=== PATIENT | male | born 1990 | race Hispanic/Latino ===

== ENCOUNTER 2022-04-05 07:14 | Emergency (ER) | payer SELFPAY ==
[2022-04-05 07:34] LABS: Urine Blood Negative (Negative); Urine Glucose Negative (Negative); Urine Protein Negative (Negative); Urine Specific Gravity 1.025 (1.005-1.030)
[2022-04-05 07:41] LABS: Urine Bacteria None Seen /HPF (<20); Urine Mucus Slight /HPF (None Seen); Urine RBC <5 /HPF (None Seen)
[2022-04-05 07:46] LABS: Absolute Lymphocytes (CBC) 2.4 K/uL (0.7-4.9); Lymphocytes % 28.1 % (15.3-44.8); MCV 99.9 fL (80-100); MPV 7.2 fL (7.6-11.3)
--- NOTE | 2022-04-05 07:59 | RAD REPORT ---
EXAM DESCRIPTION: RAD - Ribs Right - 04/05/2022 7:46 am CLINICAL HISTORY: PAIN COMPARISON: CHEST SINGLE VIEW dated 11/20/2010 FINDINGS/IMPRESSION: No displaced right-sided rib fractures are appreciated. Note that nondisplaced or minimally displaced rib fractures may not be apparent on radiography until healing begins. No pneumothorax. The lungs are clear bilaterally. Heart size is normal. Visualized upper abdomen is u nremarkable.
[2022-04-05 08:00] LABS: Albumin 3.5 g/dL (3.4-5.0); Bilirubin Total 0.4 mg/dL (0.2-1.0); Potassium 4.3 mmol/L (3.5-5.1); Protein, Total 6.8 g/dL (6.4-8.2)
[2022-04-05] MEDS ORDERED: HYDROCODONE/APAP 5/325 MG TAB ONE (08:22)
--- NOTE | 2022-04-05 08:34 | RAD REPORT ---
[facility] 8:10 am CLINICAL HISTORY: right flank pain, hematuria COMPARISON: None TECHNIQUE: CT of the abdomen and pelvis was performed without contrast. All CT scans are performed using dose optimization technique as appropriate and may include automated exposure control or mA/KV adjustment according to patient size. FINDINGS: Lower chest: No acute abnormality. Liver: No acute abnormality or suspicious lesions. Biliary: No biliary ductal dilatation. Stomach: No significant focal abnormality. Duodenum: No significant focal abnormality. Pancreas: No significant abnormality. Spleen: No significant abnormality. Adrenal: No suspicious lesions. Kidney/ureter: No hydronephrosis. No renal calculi. Retroperitoneum: No retroperitoneal adenopathy. Vascular: No aneurysm. Bowel: No significant focal abnormality. Normal appendix. Peritoneum: No ascites or free air. Bladder: Decompressed, but grossly unremarkable. Reproductive: No masses. Bones: No acute fracture. Other: n/a IMPRESSION: No acute intra-abdominal or pelvic finding. No urinary tract calculi.
--- NOTE | 2022-04-05 08:49 | ER ---
Nurse's Notes [facility] Name: Ruben Ceja III Age: 31 yrs Sex: Male : 1990 Arrival Date: 04/05/2022 Time: 07:16 Bed DIS2 Private MD: Diagnosis: Chest pain, unspecified-right lower lateral chest wall Presentation: 04/05 07:21 Chief complaint: Patient states: R lateral chest wall pain that began 2-3 weeks ago. 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 Coronavirus screen: Client denies travel out of the [place] in the last 14 days. Ebola Screen: Patient denies exposure to infectious person. Patient denies travel to an Ebola-affected area in the 21 days before illness onset. Initial Sepsis Screen: Does the patient meet any 2 criteria? No. Patient's initial sepsis screen is negative. Does the patient have a suspected source of infection? No. Patient's initial sepsis screen is negative. Risk Assessment: Do you want to hurt yourself or someone else? Patient reports no desire to harm self or others. Onset of symptoms was April 04, 2022. 07:21 Method Of Arrival: Ambulatory 07:21 Acuity: REYNA 4 ss Historical: - Allergies: 07:24 No Known Allergies; ss - Home Meds: 07:24 None [Active]; ss - PMHx: 07:24 None; ss - PSHx: 07:24 None; ss - Immunization history:: Client reports having NOT received the Covid vaccine. - Social history:: Smoking status: Patient denies any tobacco usage or history of. Patient uses alcohol, on a daily basis. Vital Signs: 07:21 BP 116 / 78; Pulse 66; Resp 16; Temp 97.8(O); Pulse Ox 98% on R/A; Height 5 ft. 9 in. ss (175.26 cm); Pain 3/10; 07:21 Pt denies pain when staying still. At worse, pain is a seven when moving ED Course: 07:16 Patient arrived in ED. am2 07:16 Fady Lambert PA is PHCP. cp 07:16 Neisha Toth MD is Attending Physician. cp 07:24 Triage completed. ss 07:24 Arm band placed on right wrist. ss 07:38 Initial lab(s) drawn, by al, sent to lab. Inserted saline lock:. Inserted saline lock: kj1 20 gauge in right antecubital area, using aseptic technique. Blood collected. 07:39 Urine collected: clean catch specimen, otto colored. kj1 07:47 XRAY Ribs RIGHT In Process Unspecified. EDMS 08:10 CT Stone Protocol In Process Unspecified. EDMS 09:04 No provider procedures requiring assistance completed. Patient did not have IV access ss during this emergency room visit. Administered Medications: 08:20 Drug: HYDROcodone-acetaminophen 5 mg-325 mg 1 tabs Route: PO; ss Outcome: 08:48 Discharge ordered by . cp 09:04 Discharged to home ambulatory. ss 09:04 Condition: good 09:04 Discharge instructions given to patient, Instructed on discharge instructions, follow up and referral plans. medication usage, Demonstrated understanding of instructions, follow-up care, medications, Prescriptions given X 1. 09:05 Patient left the ED. ss Signatures: Dispatcher [employer] Mercedez Zeng RN RN ss Fady Lambert PA PA cp Moreno, Amanda amJelly Hensley kj1
--- NOTE | 2022-04-05 08:49 | EDPHYS ---
Physician Documentation [facility] Name: Ruben Ceja III Age: 31 yrs Sex: Male : 1990 Arrival Date: 04/05/2022 Time: 07:16 Bed DIS2 Private MD: ED Physician Neisha Toth HPI: 04/05 07:30 This 31 yrs old Male presents to ER via Ambulatory with complaints of right cp rib pain/flank pain. 07:30 The patient or guardian reports chest pain that is located primarily in the right lower cp lateral chest and right flank. 07:30 Onset: The symptoms/episode began/occurred 2-3 weeks ago. Modifying factors: the cp symptoms are aggravated by movement, palpation/percussion. 07:30 Associated signs and symptoms: Pertinent positives: hematuria. cp 07:32 Patient reports pain to right lateral lower chest and right flank for past 2-3 weeks. 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 Historical: - Allergies: 07:24 No Known Allergies; ss - Home Meds: 07:24 None [Active]; ss - PMHx: 07:24 None; ss - PSHx: 07:24 None; ss - Immunization history:: Client reports having NOT received the Covid vaccine. - Social history:: Smoking status: Patient denies any tobacco usage or history of. Patient uses alcohol, on a daily basis. ROS: 07:35 Constitutional: Negative for body aches, chills, fever, poor PO intake. cp 07:35 Cardiovascular: Positive for chest pain, of the right lower lateral chest, Negative for cp edema, palpitations. 07:35 Back: Positive for flank pain, on the right. 07:35 : Positive for hematuria. Exam: 07:40 Constitutional: The patient appears in no acute distress, alert, awake, cp non-diaphoretic, non-toxic, well developed, well nourished. 07:40 Head/Face: Normocephalic, atraumatic. cp 07:40 Eyes: Periorbital structures: appear normal, Conjunctiva: normal, no exudate, no injection, Sclera: no appreciated abnormality, Lids and lashes: appear normal, bilaterally. 07:40 ENT: External ear(s): are unremarkable, Nose: is normal, Mouth: Lips: moist, Oral mucosa: pink and intact, moist, Posterior pharynx: Airway: no evidence of obstruction, patent. 07:40 Neck: ROM/movement: is normal, is supple, without pain, no range of motions limitations. 07:40 Chest/axilla: Inspection: normal, Palpation: crepitus, is not appreciated, tenderness, that is moderate, of the right lower lateral chest wall. 07:40 Cardiovascular: Rate: normal, Rhythm: regular, Edema: is not appreciated, JVD: is not appreciated. 07:40 Respiratory: the patient does not display signs of respiratory distress, Respirations: normal, no use of accessory muscles, no retractions, labored breathing, is not present, Breath sounds: are clear throughout, no decreased breath sounds, no stridor, no wheezing. 07:40 Abdomen/GI: Inspection: abdomen appears normal, Bowel sounds: active, all quadrants, Palpation: soft, in all quadrants, moderate abdominal tenderness, in the anterior aspect of right lateral abdomen and posterior aspect of right lateral abdomen, rebound tenderness, is not appreciated, involuntary guarding, is not appreciated. 07:40 Back: no vertebral tenderness palpated. 07:40 Skin: cellulitis, is not appreciated, no rash present. 07:40 Neuro: Orientation: to person, place \\T\\ time. Mentation: is normal, Motor: moves all fours, strength is normal, Sensation: is normal, Gait: is steady, at a normal pace, without difficulty. Vital Signs: 07:21 BP 116 / 78; Pulse 66; Resp 16; Temp 97.8(O); Pulse Ox 98% on R/A; Height 5 ft. 9 in. ss (175.26 cm); Pain 3/10; 07:21 Pt denies pain when staying still. At worse, pain is a seven when moving ss MDM: 07:33 Patient medically screened. cp 08:48 Patient medically screened. cp 08:48 Data reviewed: vital signs, nurses notes, lab test result(s), radiologic studies, CT cp scan, plain films. 08:48 Differential diagnosis: chest wall pain, cholecystitis, Cholelithiasis nephrolithiasis, cp pyelonephritis, UTI, pancreatitis, rib fracture, rib contusion pneumonia, pneumothorax, pulmonary embolus. Test interpretation: by ED physician or midlevel provider: plain radiologic studies. Counseling: I had a detailed discussion with the patient and/or guardian regarding: the historical points, exam findings, and any diagnostic results supporting the discharge/admit diagnosis, lab results, radiology results, the need for outpatient follow up, a family practitioner, to return to the emergency department if symptoms worsen or persist or if there are any questions or concerns that arise at home. 04/05 07:26 Order name: CBC with Diff; Complete Time: 07:54 cp 04/05 07:54 Interpretation: Normal except: MPV 7.2. cp 04/05 07:26 Order name: CMP; Complete Time: 08:01 cp 04/05 08:03 Interpretation: Normal except: CL 108; GLUC 107; BUN 20. cp 04/05 07:26 Order name: Lipase; Complete Time: 08:01 04/05 07:26 Order name: Urine Microscopic Only; Complete Time: 07:54 cp 04/05 07:26 Order name: D-Dimer; Complete Time: 07:54 04/05 07:35 Order name: Urine Dipstick-Ancillary; Complete Time: 07:54 EDMS 04/05 07:26 Order name: IV Saline Lock; Complete Time: 07:38 cp 04/05 07:26 Order name: Labs collected and sent; Complete Time: 07:38 cp 04/05 07:26 Order name: Urine Dipstick-Ancillary (obtain specimen); Complete Time: 07:39 cp 04/05 07:26 Order name: XRAY Ribs RIGHT; Complete Time: 08:01 04/05 07:55 Order name: CT Stone Protocol; Complete Time: 08:44 04/05 08:45 Interpretation: Report reviewed. cp Administered Medications: 08:20 Drug: HYDROcodone-acetaminophen 5 mg-325 mg 1 tabs Route: PO; ss Disposition Summary: 04/05/22 08:48 Discharge Ordered Location: Home cp Problem: new cp Symptoms: have improved cp Condition: Stable cp Diagnosis - Chest pain, unspecified - right lower lateral chest wall cp Followup: cp - With: Private Physician - When: 2 - 3 days - Reason: Recheck today's complaints Discharge Instructions: - Discharge Summary Sheet cp - Chest Wall Pain cp - Form - Return To Work kj1 Forms: - Medication Reconciliation Form cp - Thank You Letter cp - Antibiotic Education cp - Prescription Opioid Use cp - Work release form kj1 Prescriptions: - Diclofenac Sodium 75 mg Oral tablet,delayed release (DR/EC) - take 1 tablet by ORAL route 2 times per day; 20 tablet; Refills: 0, Product cp Selection Permitted Addendum: 04/09/2022 12:37 STAFF ATTESTATION STATEMENT: I was immediately available onsite in the emergency s d2 department for consultation in the care of this patient. I did not see or examine this patient. Neisha Toth MD. Signatures: Dispatcher [employer] EDGA Mercedez De Leon, JASPREET RN ss Fady Lambert, TATY PA Neisha Lopez MD MD sd2
[2022-04-05 09:27] VITALS: BP 116/78; TEMP 97.8; O2SAT 98
== END 2022-04-05 09:05 | disposition home or self-care (01) ==
LOC: ER 07:14
DX: R07.89 Other chest pain (principal)
CPT/HCPCS: 36415; 74176; 76377; 80053; 81003; 81015; 83690; 85025; 85379; 99284

== ENCOUNTER 2023-11-15 13:24 | Emergency (ER) | payer OTHER ==
--- NOTE | 2023-11-15 13:51 | ER ---
Nurse's Notes [facility] Name: Ruben Ceja III Age: 33 yrs Sex: Male : 1990 Arrival Date: 11/15/2023 Time: 13:24 Bed DX1 Private MD: Diagnosis: COVID-19 Presentation: 11/14 13:46 Chief complaint: Seen in ED 11/06 for COVID, employer requires return to work note. hb Coronavirus screen: At this time, the client does not indicate any symptoms associated with coronavirus-19. Ebola Screen: No symptoms or risks identified at this time. Initial Sepsis Screen: Does the patient meet any 2 criteria? No. Patient's initial sepsis screen is negative. Does the patient have a suspected source of infection? No. Patient's initial sepsis screen is negative. Risk Assessment: Do you want to hurt yourself or someone else? Patient reports no desire to harm self or others. Onset of symptoms was November 15, 2023. 13:46 Method Of Arrival: Ambulatory hb 13:46 Acuity: REYNA 5 hb - Family history:: not pertinent. Vital Signs: 13:46 BP 132 / 79; Pulse 56; Resp 16; Temp 97.3(TE); Pulse Ox 96% on R/A; Weight 81.65 kg; hb Height 5 ft. 9 in. ; Pain 0/10; 13:46 Body Mass Index 26.58 (81.65 kg, 175.26 cm) hb 13:46 Pain Scale: Adult hb ED Course: 13:26 Patient arrived in ED. im 13:27 Nasim Pagan MD is Attending Physician. rt 13:48 Triage completed. hb 14:18 Natividad Mariee RN is Primary Nurse. Administered Medications: No medications were administered Outcome: 13:50 Discharge ordered by . rt 14:18 Patient left the ED. hb Signatures: Natividad Mariee RN RN Nasim Pagan MD MD rt Ellen Medina im
--- NOTE | 2023-11-15 13:51 | EDPHYS ---
Physician Documentation [facility] Name: Ruben Ceja III Age: 33 yrs Sex: Male : 1990 Arrival Date: 11/15/2023 Time: 13:24 Bed DX1 Private MD: ED Physician Nasim Pagan HPI: 11/14 14:02 This 33 yrs old Male presents to ER via Ambulatory with complaints of Work rt note. 14:02 Patient was seen in the ED over a week ago, diagnosed with COVID. Patient states that rt his symptoms have mostly resolved except for mild lingering cough. States that he feels much better. Is here for a work note stating that he needs to go back to work. Denies other acute complaints, symptoms are mild in severity, no other aggravating or elevating factors.. - Family history:: not pertinent. ROS: 14:02 Constitutional: Negative for fever, chills, and weight loss, Cardiovascular: Negative rt for chest pain, palpitations, and edema, Abdomen/GI: Negative for abdominal pain, nausea, vomiting, diarrhea, and constipation, Skin: Negative for injury, rash, and discoloration, Neuro: Negative for headache, weakness, numbness, tingling, and seizure, 14:02 Cardiovascular: Positive for 14:02 Respiratory: Positive for cough, Negative for shortness of breath, Exam: 14:02 Constitutional: This is a well developed, well nourished patient who is awake, alert, rt and in no acute distress. Head/Face: Normocephalic, atraumatic. Chest/axilla: Normal chest wall appearance and motion. Nontender with no deformity. No lesions are appreciated. Cardiovascular: Regular rate and rhythm with a normal S1 and S2. No gallops, murmurs, or rubs. Normal PMI, no JVD. No pulse deficits. Respiratory: Lungs have equal breath sounds bilaterally, clear to auscultation and percussion. No rales, rhonchi or wheezes noted. No increased work of breathing, no retractions or nasal flaring. Abdomen/GI: Soft, non-tender, with normal bowel sounds. No distension or tympany. No guarding or rebound. No evidence of tenderness throughout. Skin: Warm, dry with normal turgor. Normal color with no rashes, no lesions, and no evidence of cellulitis. MS/ Extremity: Pulses equal, no cyanosis. Neurovascular intact. Full, normal range of motion. Vital Signs: 13:46 BP 132 / 79; Pulse 56; Resp 16; Temp 97.3(TE); Pulse Ox 96% on R/A; Weight 81.65 kg; hb Height 5 ft. 9 in. ; Pain 0/10; 13:46 Body Mass Index 26.58 (81.65 kg, 175.26 cm) hb 13:46 Pain Scale: Adult hb MDM: 13:49 Patient medically screened. rt 14:02 Differential Diagnosis COVID. Data reviewed: vital signs, nurses notes. Test considered rt but Not performed: Other Details Significantly proving symptoms, stable vital signs, labs, x-ray not indicated. Counseling: I had a detailed discussion with the patient and/or guardian regarding the historical points, exam findings, and any diagnostic results supporting the discharge/admit diagnosis, the need for outpatient follow up, to return to the emergency department if symptoms worsen or persist or if there are any questions or concerns that arise at home. Administered Medications: No medications were administered Disposition Summary: 11/15/23 13:50 Discharge Ordered Notes: Location: Home rt Problem: an ongoing problem rt Symptoms: have improved rt Condition: Stable rt Diagnosis - COVID-19 rt Followup: rt - With: Private Physician - When: 2 - 3 days - Reason: Discharge Instructions: - Discharge Summary Sheet rt - COVID-19 rt Forms: - Work release form rt - Medication Reconciliation Form rt - Antibiotic Education rt - Prescription Opioid Use rt - Patient Portal Instructions rt - Leadership Thank You Letter rt Signatures: Nasim Pagan MD MD rt
[2023-11-15 14:29] VITALS: BP 132/79; TEMP 97.3; O2SAT 96
== END 2023-11-15 14:18 | disposition home or self-care (01) ==
LOC: ER 13:24
DX: Z02.79 Encounter for issue of other medical certificate (principal)
CPT/HCPCS: 99281

== ENCOUNTER 2023-11-26 17:11 | Emergency (ER) | payer OTHER ==
[2023-11-26 18:30] LABS: Absolute Basophils 0.1 K/uL (0-0.5); Absolute Eosinophils 0.1 K/uL (0-0.5); Absolute Lymphocytes (CBC) 2.4 K/uL (0.7-4.9); Absolute Monocytes 0.7 K/uL (0.1-1.3); Absolute Neutrophil 4.2 K/uL (1.8-8.0); Basophils % 0.9 % (0-1.3); Eosinophils % 0.7 % (0-4.4); Hematocrit 44.6 % (39.6-49.0); Hemoglobin 14.7 g/dL (13.6-17.9); Lymphocytes % 32.8 % (15.3-44.8); MCH 33.3 pg (27.0-35.0); MCHC 32.9 g/dL (32.0-36.0); MCV 101.4 fL (80-100); MPV 7.4 fL (7.6-11.3); Monocytes % 9.5 % (3.3-12.3); Neutrophils % 56.1 % (41.7-73.7); Platelets 253 thou/uL (152-406)
[2023-11-26 18:37] LABS: Specific Gravity 1.011 (1.005-1.030); Urine Bilirubin NEGATIVE (Negative); Urine Blood Negative (Negative); Urine Clarity Clear (Clear); Urine Color Colorless (Yellow); Urine Glucose NEGATIVE (Negative); Urine Ketones NEGATIVE (Negative); Urine Microscopic Reflex YN NO UMIC; Urine Nitrite NEGATIVE (Negative); Urine Protein NEGATIVE (Negative); Urine Urobilinogen Normal (Normal); Urine pH 6.5 (5.0-7.0)
[2023-11-26 18:48] LABS: Barbiturates NEGATIVE (NEGATIVE); Benzodiazepines NEGATIVE (NEGATIVE); Cocaine NEGATIVE (NEGATIVE); METHAMPHETAM NEGATIVE (NEGATIVE); Methadone NEGATIVE (NEGATIVE); Opiates NEGATIVE (NEGATIVE); Phencyclidine NEGATIVE (NEGATIVE); THC Cannibis NEGATIVE (NEGATIVE)
[2023-11-26 18:49] LABS: Albumin 4.1 g/dL (3.4-5.0); Albumin/Globulin Ratio 1.3 (1.1-1.8); Anion Gap 8.4 mEq/L (5.0-15.0); Bilirubin Direct 0.2 mg/dL (0-0.2); Bilirubin Indirect, Calculated 0.3 mg/dL (0.2-0.8); Bilirubin Total 0.5 mg/dL (0.2-1.0); Globulin 3.2 g/dL (2.3-3.5); Magnesium 2.2 mg/dL (1.6-2.4); Potassium 3.4 mEq/L (3.5-5.1); Protein, Total 7.3 g/dL (6.4-8.2); Troponin High Sensitivity 3.7 pg/mL (<58.9)
[2023-11-26 18:51] LABS: PT Prothrombin Time 11.7 SECONDS (9.4-12.5); PTT, Activated Partial Thromb 33.1 SECONDS (24.3-36.9); Protime INR 1.05
[2023-11-26] MEDS ORDERED: NA CHLORIDE 0.9% 1,000 ML ONE (19:25)
--- NOTE | 2023-11-26 20:13 | RAD REPORT ---
EXAM DESCRIPTION: CT - Head Brain Wo Cont - 11/26/2023 6:54 pm CLINICAL HISTORY: SYNCOPE COMPARISON: No comparisons TECHNIQUE: Noncontrast head CT images were obtained without IV contrast. Multiplanar reformats were generated and reviewed. All CT scans are performed using dose optimization technique as appropriate and may include automated exposure control or mA/KV adjustment according to patient size. FINDINGS: No intracranial hemorrhage, mass, or edema. Midline structures are unremarkable. Normal ventricular caliber for age. Prieto-white matter differentiation is preserved, without evidence of acute infarct. No abnormal extra- axial fluid collections. Mastoid air cells and visualized portions of the paranasal sinuses are clear. No acute bony findings. IMPRESSION: No evidence of an acute intracranial process.
--- NOTE | 2023-11-26 20:15 | EDPHYS ---
Physician Documentation [facility] Name: Ruben Ceja III Age: 33 yrs Sex: Male : 1990 Arrival Date: 11/26/2023 Time: 17:11 Bed 9 Private MD: ED Physician Jesus Conteh HPI: 11/25 18:02 This 33 yrs old Male presents to ER via Ambulatory with complaints of Heat sb4 Exposure. 18:02 was working at his job outside, started to feel dizzy/numb on his face, left arm, and sb4 short of breath. he went inside and ate a kit berenice and dr helton and felt better. states his symptoms have resolved now but wants to make sure everything else is okay. Historical: - Allergies: 17:58 No Known Allergies; db - PMHx: 17:58 None; db - Immunization history:: Adult Immunizations unknown. - Infectious Disease History:: Denies. - Social history:: Smoking status: Patient denies any tobacco usage or history of. ROS: 18:02 Constitutional: Negative for fever, chills, and weight loss, sb4 18:02 Neuro: Positive for dizziness, near syncope, 18:02 All other systems are negative, Exam: 18:02 Constitutional: This is a well developed, well nourished patient who is awake, alert, sb4 and in no acute distress. Head/Face: Normocephalic, atraumatic. Eyes: Extra-ocular motions intact. Periorbital areas with no swelling, redness, or edema. ENT: Mucous membranes moist. Cardiovascular: Regular rate and rhythm with a normal S1 and S2. Respiratory: Lungs have equal breath sounds bilaterally, clear to auscultation and percussion. No rales, rhonchi or wheezes noted. No increased work of breathing, no retractions or nasal flaring. Abdomen/GI: Soft, non-tender, no distension. Skin: Warm, dry with normal turgor. Normal color with no rashes, no lesions, and no evidence of cellulitis. MS/ Extremity: Pulses equal, no cyanosis. Neurovascular intact. Full, normal range of motion. Neuro: Awake and alert, GCS 15, oriented to person, place, time, and situation. Motor strength 5/5 in all extremities. Sensory grossly intact. Vital Signs: 17:56 BP 135 / 89; Pulse 67; Resp 16; Temp 98.2(O); Pulse Ox 98% ; db 19:31 BP 110 / 81; Pulse 64; Resp 16; Pulse Ox 99% on R/A; me1 20:17 BP 110 / 80; Pulse 73; Resp 16; Temp 98.6; Pulse Ox 100% on R/A; me1 MDM: 17:20 Patient medically screened. sb4 20:14 Data reviewed: vital signs, nurses notes, lab test result(s), EKG, radiologic studies, sb4 and as a result, I will discharge patient. Counseling: I had a detailed discussion with the patient and/or guardian regarding the historical points, exam findings, and any diagnostic results supporting the discharge/admit diagnosis, lab results, radiology results, to return to the emergency department if symptoms worsen or persist or if there are any questions or concerns that arise at home. 11/25 18:00 Order name: Basic Metabolic Panel; Complete Time: 18:50 sb4 11/25 18:00 Order name: CBC with Diff; Complete Time: 18:44 sb4 11/25 18:00 Order name: Hepatic Function; Complete Time: 18:50 sb4 11/25 18:00 Order name: Magnesium; Complete Time: 18:50 sb4 11/25 18:00 Order name: Protime (+inr); Complete Time: 18:58 sb4 11/25 18:00 Order name: Ptt, Activated; Complete Time: 18:58 sb4 11/25 18:00 Order name: Troponin High Sensitivity; Complete Time: 18:50 sb4 11/25 18:00 Order name: UDS; Complete Time: 18:49 sb4 11/25 18:00 Order name: Urinalysis w/ reflexes; Complete Time: 18:37 sb4 11/25 18:00 Order name: CT Head Brain wo Cont; Complete Time: 20:14 sb4 11/25 18:00 Order name: EKG; Complete Time: 18:00 sb4 11/25 18:00 Order name: Cardiac monitoring; Complete Time: 19:31 sb4 11/25 18:00 Order name: EKG - Nurse/Tech; Complete Time: 18:50 sb4 11/25 18:00 Order name: IV Saline Lock; Complete Time: 18:25 sb4 11/25 18:00 Order name: Labs collected and sent; Complete Time: 18:25 sb4 11/25 18:00 Order name: O2 Per Protocol; Complete Time: sb4 11/25 18:00 Order name: O2 Sat Monitoring; Complete Time: sb4 EC:41 Rate is 50 beats/min. Rhythm is regular, Sinus bradycardia. TN interval is normal at sb4 166 msec. QRS interval is normal at 90 msec. QT interval is normal at 412 msec. No Q waves. T waves are Normal. No ST changes noted. Clinical impression: Sinus bradycardia. Interpreted by me. Reviewed by me. Administered Medications: : Drug: NS 0.9% IV 1000 ml IV at 1 bolus Per protocol; 1000 mL bolus Route: IV; Rate: 1 me1 bolus; Site: left antecubital; :23 Follow up: Response: No adverse reaction; IV Status: Completed infusion; IV Intake: me1 1000ml Disposition Summary: 11/26/23 20:14 Discharge Ordered Notes: Location: Home sb4 Problem: new sb4 Symptoms: have improved sb4 Condition: Stable sb4 Diagnosis - Heat exhaustion, unspecified sb4 - Syncope Near sb4 Followup: sb4 - With: Emergency Department - When: As needed - Reason: Trouble breathing, Worsening of condition Discharge Instructions: - Discharge Summary Sheet sb4 - Near-Syncope sb4 - Heat Exhaustion sb4 Forms: - Work release form sb4 - Patient Portal Instructions sb4 - Leadership Thank You Letter sb4 Signatures: Dispatcher [employer] Gissel Beckett RN RN db Brown, Sophia, PA-C PA-C 4 Janine Jones RN RN me1
--- NOTE | 2023-11-26 20:15 | ER ---
[facility] Name: Ruben Ceja III Age: 33 yrs Sex: Male : 1990 Arrival Date: 11/26/2023 Time: 17:11 Bed 9 Private MD: Diagnosis: Heat exhaustion, unspecified;Syncope Near Presentation: 11/25 17:56 Chief complaint: Patient states: WORKING OUTSIDE STATES LEFT ARM STARTED GETTING db TINGLING AND DIZZY AND FELT LIKE SUGAR DROPPED. DRINK SOME SODA AND CANDY AND WENT INSIDE. AFTER GETTING SOME "SUGAR I FELT BETTER". Coronavirus screen: Client denies travel out of the [place] in the last 14 days. At this time, the client does not indicate any symptoms associated with coronavirus-19. Ebola Screen: Patient negative for fever greater than or equal to 101.5 degrees Fahrenheit, and additional compatible Ebola Virus Disease symptoms Patient denies exposure to infectious person. Patient denies travel to an Ebola-affected area in the 21 days before illness onset. No symptoms or risks identified at this time. Initial Sepsis Screen: Does the patient meet any 2 criteria? No. Patient's initial sepsis screen is negative. Does the patient have a suspected source of infection? No. Patient's initial sepsis screen is negative. Risk Assessment: Do you want to hurt yourself or someone else? Patient reports no desire to harm self or others. Onset of symptoms was November 26, 2023. 17:56 Method Of Arrival: Ambulatory db 17:56 Acuity: REYNA 3 db Triage Assessment: 17:58 General: Appears in no apparent distress. comfortable, Behavior is calm, cooperative, db appropriate for age. Pain: Denies pain. Neuro: Level of Consciousness is awake, alert, obeys commands, Oriented to person, place, time, situation. Cardiovascular: No deficits noted. Respiratory: Airway is patent Respiratory effort is even, unlabored, Respiratory pattern is regular, symmetrical. Historical: - Allergies: 17:58 No Known Allergies; db - PMHx: 17:58 None; db - Immunization history:: Adult Immunizations unknown. - Infectious Disease History:: Denies. - Social history:: Smoking status: Patient denies any tobacco usage or history of. Screenin:32 [facility] Fall Risk Assessment (Adult) History of falling in the last 3 months, me1 including since admission No falls in past 3 months (0 pts) Confusion or Disorientation No (0 pts) Intoxicated or Sedated No (0 pts) Impaired Gait No (0 pts) Mobility Assist Device Used No (0 pt) Altered Elimination No (0 pt) Score/Fall Risk Level 0 - 2 = Low Risk Maintained a safe environment, Provided non-skid footwear, Hourly rounding (assess needs \\T\\ fall precautionary measures) done. Abuse screen: Denies threats or abuse. Nutritional screening: No deficits noted. Tuberculosis screening: No symptoms or risk factors identified. Assessment: 19:32 General: Appears comfortable, well developed, well nourished, Behavior is calm, me1 cooperative, appropriate for age, Reports WORKING OUTSIDE STATES LEFT ARM STARTED GETTING TINGLING AND DIZZY AND FELT LIKE SUGAR DROPPED. DRINK SOME SODA AND CANDY AND WENT INSIDE. AFTER GETTING SOME "SUGAR I FELT BETTER". Pain: Denies pain. Neuro: Level of Consciousness is awake, alert, obeys commands, Oriented to person, place, time, situation, Appropriate for age Reports dizziness, while outside earlier today. Cardiovascular: Patient's skin is warm and dry. Respiratory: Airway is patent Respiratory effort is even, unlabored, Respiratory pattern is regular, symmetrical. GI: No signs and/or symptoms were reported involving the gastrointestinal system. : No signs and/or symptoms were reported regarding the genitourinary system. EENT: No signs and/or symptoms were reported regarding the EENT system. Derm: Skin is intact, is healthy with good turgor, Skin is pink, warm \\T\\ dry. Musculoskeletal: No signs and/or symptoms reported regarding the musculoskeletal system. Vital Signs: 17:56 BP 135 / 89; Pulse 67; Resp 16; Temp 98.2(O); Pulse Ox 98% ; db 19:31 BP 110 / 81; Pulse 64; Resp 16; Pulse Ox 99% on R/A; me1 20:17 BP 110 / 80; Pulse 73; Resp 16; Temp 98.6; Pulse Ox 100% on R/A; me1 ED Course: 17:14 Patient arrived in ED. im 17:18 [facility] sb4 17:18 Jesus Conteh MD is Attending Physician. sb4 17:58 Triage completed. db 17:58 Arm band placed on right wrist. Patient placed in waiting room. db 18:25 Basic Metabolic Panel Sent. bc6 18:25 CBC with Diff Sent. bc6 18:25 Hepatic Function Sent. bc6 18:25 Magnesium Sent. bc6 18:25 Protime (+inr) Sent. bc6 18:25 Ptt, Activated Sent. bc6 18:25 Troponin High Sensitivity Sent. bc6 18:25 UDS Sent. bc6 18:25 Urinalysis w/ reflexes Sent. bc6 18:25 Initial lab(s) drawn, by me, sent to lab. Inserted saline lock: 20 gauge in left bc6 forearm, using aseptic technique. Blood collected. Flushed with 10 mL NS. 18:56 CT Head Brain wo Cont In Process Unspecified. EDMS 19:23 Janine Jones, JASPREET is Primary Nurse. me1 19:32 Patient has correct armband on for positive identification. Bed in low position. Call me1 light in reach. Side rails up X2. Provided Education on: POC. Verbalized understanding. . Client placed on continuous cardiac and pulse oximetry monitoring. NIBP monitoring applied. child monitor on. Pulse ox on. NIBP on. 19:32 No provider procedures requiring assistance completed. me1 20:23 IV discontinued, intact, bleeding controlled, No redness/swelling at site. Pressure me1 dressing applied. Administered Medications: 19:31 Drug: NS 0.9% IV 1000 ml IV at 1 bolus Per protocol; 1000 mL bolus Route: IV; Rate: 1 me1 bolus; Site: left antecubital; 20:23 Follow up: Response: No adverse reaction; IV Status: Completed infusion; IV Intake: me1 1000ml Medication: 19:32 VIS not applicable for this client. me1 Intake: 20:23 IV: 1000ml; Total: 1000ml. me1 Outcome: 20:14 Discharge ordered by . sb4 20:23 Discharged to home ambulatory, me1 20:23 Condition: stable 20:23 Discharge instructions given to patient, Instructed on discharge instructions, follow up and referral plans. Demonstrated understanding of instructions, follow-up care, 20:23 Patient left the ED. me1 Signatures: Dispatcher [employer] EDIL Gissel Crenshaw RN RN db Brown, Sophia, PA-C PARandy sb4 Chanelle Oh bc6 Ellen Medina Michelle, RN RN me1 Corrections: (The following items were deleted from the chart) 19:32 17:56 Chief complaint: Patient states: WORKING OUTSIDE STATES LEFT ARM STARTED GETTING me1 TINGLING AND DIZZY AND FELT LIKE SUGAR DROPPED. DRINK SOME SODA AND CANDY AND WENT INSIDE. AFTER GETTING SOME "SUGAR I FELT BETTER" db
[2023-11-26 20:53] VITALS: BP 110/80; TEMP 98.6; O2SAT 100
--- NOTE | 2023-11-27 16:58 | EKG ---
Test Date: 2023-11-26 Test Time: 18:39:19 Finger Grip Machine Operator: TOREY MEASUREMENT RESULTS: Intervals: Rate: 50 WI: 166 QRSD: 90 QT: 412 QTc: 375 [place]: P: 50 WI: 166 QRS: 94 T: 77 INTERPRETIVE STATEMENTS: Sinus bradycardia Otherwise normal ECG Compared to ECG 07/03/2004 16:11:00 Sinus rhythm no longer present Atrial premature complex(es) no longer present Electronically Signed On 11-27-23 16:56:06 CDT by Mike Morales
== END 2023-11-26 20:23 | disposition home or self-care (01) ==
LOC: ER 17:11
DX: T67.5XXA Heat exhaustion, unspecified, initial encounter (principal); R55 Syncope and collapse
CPT/HCPCS: 85025; 80048; 36415; 83735; 85610; 80076; 85730; 81003; 84484; 80307; 70450; J7030; 93005